=== PATIENT | male | born 1985 | race Caucasian/White ===

== ENCOUNTER 2021-12-11 09:47 | Outpatient (CLI) | payer OTHER, SELFPAY ==
[2021-12-11 13:24] LABS: Chloride* 102 mmol/L (96-114); Sodium* 136 mmol/L (135-149)
[2021-12-11 13:25] LABS: Potassium* 4.5 mmol/L (3.6-5.1)
[2021-12-11 13:27] LABS: Blood Urea Nitrogen* 14 mg/dL (5-24); Carbon Dioxide* 27 mmol/L (20-32); Cholesterol* 188 mg/dL (90-199); Creatinine* 0.9 mg/dL (0.5-1.5); Estimated Glomerular Filt Rate 114 ml/min
[2021-12-11 13:28] LABS: Calcium* 9.1 mg/dL (8.4-10.6); Glucose* 98 mg/dL (60-115); HDL Cholesterol* 52 mg/dL (>=40); LDL Cholesterol Calculated 108 mg/dL (<100); Triglycerides* 138 mg/dL (40-149)
== END 2021-12-11 09:48 | disposition home or self-care (01) ==
PROVIDERS: PCP Family Medicine; Visit Provider Family Medicine
DX: E78.5 Hyperlipidemia, unspecified (principal); Z13.1 Encounter for screening for diabetes mellitus
CPT/HCPCS: 80048; 80061

== ENCOUNTER 2023-02-16 23:19 | Emergency (ER) | payer OTHER, SELFPAY ==
[2023-02-16 23:35] VITALS: BP 131/84; PULSE 54; RESP 16; TEMP 36.4; O2SAT 98; BMI 26.5
--- NOTE | 2023-02-16 23:38 | CRLHL7_ITS ---
For Patients: As a result of the Cures Act, medical imaging exams and procedure reports are released immediately into your electronic medical record. You may view this report before your referring provider. If you have questions, please contact your health care provider. Indication: Trauma. Technique: Right shoulder, 3 views. Comparison: None. Findings: Bones: Alignment is normal. No fractures or bone lesions. Joint spaces: Unremarkable. Soft tissues: Unremarkable. Impression: No sign of acute injury. Dictated by Kumar Stuart MD @ 02/17/2023 12:41:02 AM (Electronically Signed)
--- NOTE | 2023-02-17 00:04 | ED_ITS ---
HPI - Extremity Injury (Upper) General Chief Complaint: Extremity Pain/Injury, Upper Stated Complaint: right shoulder injury playing hockey Time Seen by Provider: 02/16/23 23:57 History of Present Illness HPI narrative: This 37-year-old male comes in with an injury to his right shoulder. This occurred just prior to arrival as he was playing hockey. He states that something or someone hit him on the angle of his right shoulder. It was not because of a fall and there was no head injury or loss of consciousness. He has decreased range of motion due to pain. Related Data Previous Rx's Medication Instructions Recorded atorvastatin 20 mg tablet See Rx Instructions .Route 01/19/23 .COMPLEX #90 tabs Allergies Allergy/AdvReac Type Severity Reaction Status Date / Time No Known Drug Allergies Allergy Verified 12/11/21 09:12 Review of Systems Status of ROS: Reports: 10 or more systems reviewed and unremarkable except as noted in History and below Narrative: Constitutional: No fevers, no weight gain or loss. Eyes: No discharge. No vision changes. HENT: No congestion, no sore throat, no ear pain. Cardiovascular: No chest pain, no palpitations. Respiratory: No shortness of breath, no wheezes, no cough. Gastrointestinal: No abdominal pain, no vomiting, no diarrhea. Genitourinary: No dysuria, no hematuria. Musculoskeletal: Right shoulder injury as described above. Skin: No rashes, no pruritis. Neurological: No dizziness, weakness, sensory change, speech change. Endo/Heme/Allergies: No bruising or bleeding. No polydipsia. Pysch: no suicidality, no anxiety, no insomnia. All other systems reviewed and are negative. [facility] Medical History Tobacco abuse Surgical History S/P nasal polypectomy Family History Family/Other ASCVD (arteriosclerotic cardiovascular disease) Diabetes Social History Smoking Status: Former smoker Exam Narrative: Exam Narrative: Constitutional: Well-developed, well-nourished, no acute distress. HEENT: Normocephalic, atraumatic. Neck: Normal range of motion. Nontender. Supple. Heart: Intact distal pulses. Lungs: No chest discomfort. No wheezes, rhonchi, or rales. Abdomen: Nontender. Back: Normal range of motion. Extremities: Diffuse pain in the right shoulder with no sign of deformity or swelling. Pain seems to be more localized at the angle of the shoulder where the AC ligament exists. Range of motion is decreased due to pain. Skin: Intact. No rash. Warm. No erythema or pallor. Neurologic: No altered sensation. No weakness. Alert and oriented. Psychiatric: No suicidality. No anxiety or depression. No insomnia. Nursing notes and vitals signs are reviewed. Const: Vital Signs, click to edit/add: Vital Signs - 24 hr 02/16/23 23:35 Temperature 97.6 F Pulse Rate [Pulse Oximeter] 54 L Respiratory Rate 16 Blood Pressure [[facility] Upper Arm] 131/84 Pulse Oximetry 98 Course Vital Signs Vital signs: Initial Vital Signs Temperature 97.6 F 02/16/23 23:35 Temperature Source Temporal Artery Scan 02/16/23 23:35 Pulse Rate 54 L 02/16/23 23:35 Respiratory Rate 16 02/16/23 23:35 Blood Pressure 131/84 02/16/23 23:35 Blood Pressure Mean 99 02/16/23 23:35 Blood Pressure Position Sitting 02/16/23 23:35 Pulse Oximetry 98 02/16/23 23:35 Vital Signs Temperature 97.6 F 02/16/23 23:35 Pulse Rate 54 L 02/16/23 23:35 Respiratory Rate 16 02/16/23 23:35 Blood Pressure 131/84 02/16/23 23:35 Pulse Oximetry 98 02/16/23 23:35 Temperature 97.6 F 02/16/23 23:35 Pulse Rate 54 L 02/16/23 23:35 Respiratory Rate 16 02/16/23 23:35 Blood Pressure 131/84 02/16/23 23:35 Pulse Oximetry 98 02/16/23 23:35 MDM - Extremity Injury (Upper) MDM Narrative Medical decision making narrative: This patient comes in with an injury to his right shoulder. X-ray imaging by my review shows no sign of fracture dislocation. Radiology report is pending. The mechanism of injury is suspicious however for possible grade 1 AC separation. The patient received a sling and is encouraged to increase activity as tolerated. He also received [employer] prescription for some tablets of [place] to be used as needed. Discharge Plan Discharge Clinical Impression: Injury of shoulder, right Patient Disposition: Home, Self-Care Condition: Unchanged Additional Instructions: Wear sling as needed. Increase activity as tolerated. Use medications also as needed and directed. Follow-up with orthopedic clinic if not improving. Prescriptions: No Action atorvastatin 20 mg tablet See Rx Instructions .ROUTE .COMPLEX Qty: 90 0RF Dose Instruction: TAKE 1 TABLET BY MOUTH EVERY DAY AT BEDTIME Rx Instructions: TAKE 1 TABLET BY MOUTH EVERY DAY AT BEDTIME Follow Up/Referrals: Jason Snyder MD [Primary Care Provider] - Stand Alone Forms: [employer] Info Instructions
== END 2023-02-17 00:19 | disposition home or self-care (01) ==
LOC: ED 02-17 00:14
PROVIDERS: Emergency Provider Emergency Medicine Emergency Medical Services; PCP Family Medicine
DX: M25.511 Pain in right shoulder (principal); Y93.22 Activity, ice hockey
CPT/HCPCS: 73030; 99283; 99284

== ENCOUNTER 2023-08-16 08:06 | Outpatient (CLI) | payer OTHER, SELFPAY | END 2023-08-16 08:07 | disposition home or self-care (01) | PROVIDERS: PCP Family Medicine; Visit Provider Family Medicine | DX: E78.5 Hyperlipidemia, unspecified (principal) | CPT/HCPCS: 80061 ==